=== PATIENT | male | born 1985 | race Caucasian/White ===

== ENCOUNTER 2020-01-12 12:05 | Emergency (ER) | payer SELFPAY ==
[2020-01-12 12:07] VITALS: BP 121/81; PULSE 69; RESP 16; TEMP 36.6; O2SAT 98; BMI 26.6
--- NOTE | 2020-01-12 12:15 | ED.VIS.GEN ---
History of Present Illness Chief Complaint: Bite Detail of Chief Complaint: Multiple erythematous raised pruritic areas Informant: Patient Onset: Yesterday Context: Sudden Onset Timing: Continuous Quality: Erythematous raised pruritic lesions Location: Extremities Current Severity: Mild Maximum Severity: Moderate Worsened by: Itching Relieved by: Nothing Associated Symptoms: None Narrative: Patient is a 34-year-old male presents with erythematous raised pruritic areas predominantly extremities. He denies headache, visual, ocular auditory symptoms. Denies dysphonia or dysphasia. Denies chest pain or shortness of breath. Denies wheezing. Denies swelling of his lips, tongue or throat. He states he was [place] in [place]. Prior similar symptoms: No Recent Illness/Hospitalization: No - Past Medical History (1) No significant past medical history Status: Acute Past Medical History - Allergies and Home Meds Allergies/Adverse Reactions: Allergies No Known Allergies Allergy (Verified 01/12/20 12:06) Primary Care Physician: NOT,DEFINED [Primary Care Provider] - Prior records reviewed: Yes Past Medical History: None Surgical History: no surgical history Lives: Alone Smoking Status: Current every day smoker Alcohol: None Drugs: None Review of Systems General: Denies: Chills, Fever, Malaise, Subjective Eyes: Denies: Visual changes - bilaterally, Blurred Vision - bilaterally ENT: Denies: Bilateral ear pain, Rhinorrhea, Sore throat Cardiovascular: Denies: Chest pain, Palpitations Respiratory: Denies: Dyspnea, Cough, Dyspnea on exertion Gastrointestinal: Denies: Nausea, Vomiting Skin: Reports: Rash. Denies: Abscess, Abrasions, Wounds Neurological: Denies: Weakness, Parasthesia, Numbness Allergy: Denies: Uticaria, Swelling of the mouth, Swelling of the tongue Physical Exam Vital Signs/Narrative: Vital Signs Temp Pulse Resp BP Pulse Ox 01/12/20 12:07 98 F 69 16 121/81 H 98 Inital Vital Signs reviewed: Yes General: Well nourished, Well developed, No Acute Distress Head: Normocephalic, Atraumatic Eyes: Perrl, EOMI. Negative for: Pale conjunctiva, Scleral icterus ENT: Moist mucous membranes, No rhinorrhea, TM's clear. Negative for: Dry mucous membranes, Nasal congestion Neck: Supple, Nontender, No lymphadenopathy, No JVD, - - Trachea is midline. There is no inspiratory expiratory stridor. Cardiovascular: Regular rate, Regular rhythm, No murmurs, Normal S1, Normal S2 Respiratory: No distress, CTA bilaterally, Chest nontender Skin: - Neurological: Alert, Oriented x3, Cranial nerves II-XII grossly intact, Normal Strength, Normal Sensation Psychological: Normal affect, Normal Mood Diagnostic/Tx/Re-eval - Medical Decision Making Patient has multiple raised areas that may represent local reaction to insect bite. There is no systemic symptoms. This may be a atypical impression for urticaria. He was treated with H1 and H2 anjelica and dose of prednisone in department. His discharge prescription for antihistamine and H2 anjelica. ED Disposition - Plan for ED Patient: Disposition: Home or Assisted Living Diagnosis: Local allergic reaction due to insect bi Instructions: ED BITE Mosquito Prescriptions: Loratadine/Pseudoephedrine [Claritin-D 24 Hour Tablet] 1 ea PO DAILY #4 tab.er.24h Transmission Status: Pending to [facility] Famotidine [Pepcid] 20 mg PO BID #7 tab Transmission Status: Pending to [facility] Referrals: NOT,DEFINED [Primary Care Provider] - [facility] [NON-STAFF] - 3-5 Days if not improving
[2020-01-12] MEDS: Famotidine 20 MG Tablet PO (12:27)
[2020-01-12] MEDS: Loratadine 10 MG Tablet PO (12:27)
[2020-01-12] MEDS: predniSONE 20 MG Tablet 60 MG PO (12:27)
== END 2020-01-12 12:50 | disposition home or self-care (01) ==
LOC: ED 12:40
PROVIDERS: Emergency Provider Emergency Medicine
DX: T78.40XA Allergy, unspecified, initial encounter (principal); F17.200 Nicotine dependence, unspecified, uncomplicated
CPT/HCPCS: 99283